=== PATIENT | female | born 1995 | race Caucasian/White ===

== ENCOUNTER 2020-07-05 12:20 | Outpatient (CLI) | payer OTHER, SELFPAY ==
[2020-07-05 13:35] LABS: Basophils Percent Auto 0.4 % (0.2-1.2); Eosinophils Percent Auto 0.5 % (0-4.4); Hematocrit 32.4 % (37.0-47.0); Immature Granulocyte Absolute 0.03 K/mm3 (0.00-0.031); Immature Granulocyte Percent A 0.4 % (0-0.5); Lymphocytes Absolute Auto 1.77 K/mm3 (0.9-3.2); Lymphocytes Percent Auto 23.2 % (18.3-44.2); Mean Corpuscular HGB Conc 30.9 g/dl (32-36); Mean Corpuscular Hemoglobin 22.3 pg (26-34); Mean Corpuscular Volume 72.2 fl (80-100); Mean Platelet Volume 10.1 fl (7.4-10.4); Monocytes Absolute Auto 0.4 K/mm3 (0.1-0.6); Monocytes Percent Auto 4.7 % (2.6-8.5); Neutrophils Absolute Auto 5.4 K/mm3 (1.3-6.7); Neutrophils Percent Auto 70.8 % (45.5-73.1); Platelet Count Result 332 k/mm3 (150-375); Red Blood Count 4.49 M/mm3 (4.2-5.4); Red Cell Distribution Width 16.3 % (11.5-14.5); White Blood Count 7.6 K/mm3 (4.5-10.0)
[2020-07-05 13:43] LABS: Hemoglobin A1C 5.3 % (<5.7)
[2020-07-05 14:27] LABS: HIV 1/2 Ab P24 Ag Result Negative (Negative)
[2020-07-05 14:53] LABS: Hepatitis B Surface Antigen Negative (Negative); Rubella IgG Antibody 49.8 IU/ML
[2020-07-05 15:04] LABS: Hepatitis C Virus Antibody Negative (Negative)
[2020-07-06 11:03] LABS: Rapid Plasma Reagin Non-Reactive (NonReactive)
== END 2020-07-05 12:21 | disposition home or self-care (01) ==
PROVIDERS: Visit Provider Obstetrics & Gynecology
DX: Z34.91 Encounter for supervision of normal pregnancy, unspecified, first trimester (principal); Z3A.00 Weeks of gestation of pregnancy not specified
CPT/HCPCS: 36415; 83036; 85025; 86592; 86703; 86762; 86803; 86850; 86900; 86901; 87340; G0432

== ENCOUNTER 2020-08-05 12:38 | Emergency (ER) | payer OTHER, SELFPAY ==
--- NOTE | 2020-08-05 12:41 | ECG_ITS ---
Measurements Intervals [place] Rate: 76 P: 6 AR: 158 QRS: -8 QRSD: 111 T: 7 QT: 378 QTc: 426 Interpretive Statements SINUS RHYTHM INCOMPLETE RIGHT BUNDLE BRANCH BLOCK BORDERLINE ECG Electronically Signed On 08-05-2020 13:53:23 ENTRY LEVEL CIVIL ENGINEER by Jason Peraza D.O.
[2020-08-05 12:53] VITALS: BP 137/71; PULSE 88; RESP 16; TEMP 36.2; O2SAT 100
[2020-08-05 13:13] LABS: Basophils Percent Auto 0.4 % (0.2-1.2); Eosinophils Absolute Auto 0.1 K/mm3 (0-0.3); Eosinophils Percent Auto 1.5 % (0-4.4); Hematocrit 28.4 % (37.0-47.0); Hemoglobin 8.9 g/dL (12.0-15.0); Immature Granulocyte Absolute 0.03 K/mm3 (0.00-0.031); Immature Granulocyte Percent A 0.4 % (0-0.5); Lymphocytes Absolute Auto 1.48 K/mm3 (0.9-3.2); Lymphocytes Percent Auto 20.3 % (18.3-44.2); Mean Corpuscular HGB Conc 31.3 g/dl (32-36); Mean Corpuscular Hemoglobin 23.1 pg (26-34); Mean Corpuscular Volume 73.8 fl (80-100); Mean Platelet Volume 10.4 fl (7.4-10.4); Monocytes Absolute Auto 0.3 K/mm3 (0.1-0.6); Monocytes Percent Auto 4.2 % (2.6-8.5); Neutrophils Absolute Auto 5.3 K/mm3 (1.3-6.7); Neutrophils Percent Auto 73.2 % (45.5-73.1); Platelet Count Result 294 k/mm3 (150-375); Red Blood Count 3.85 M/mm3 (4.2-5.4); White Blood Count 7.3 K/mm3 (4.5-10.0)
[2020-08-05 13:28] LABS: Anion Gap 7 mmol/L (8-16); Blood Urea Nitrogen 8 mg/dL (7-17); Calcium 8.8 mg/dL (8.4-10.2); Carbon Dioxide 24 mmol/L (22-30); Chloride 105 mmol/L (98-107); Estimated CRCL calculation 123 ml/min; Estimated Glomerular Filt Rate > 60; Glucose 135 mg/dL (65-105); Potassium 3.8 mmol/L (3.4-5.0); Sodium 136 mmol/L (137-145)
--- NOTE | 2020-08-05 13:51 | ED.DIZZY ---
HPI - Dizziness General Chief Complaint: Dizziness Stated Complaint: lightheaded/dizzy/ 16 weeks preg Time Seen by Provider: 08/05/20 13:27 History of Present Illness HPI Narrative: 25 yo female at 16 weeks gestation presents to the ED for dizziness. She reports that while at work today she became light headed. She has had similar symptoms recently. This only happens while standing. No LOC, SOB, CP, palpitations. She was nted to be anemic on labs done during triage. No significant change from previous labs and she denies any bleeding. Related Data Home Medications Medication Instructions Recorded Confirmed [id number] fum-folic ac-om3 pkg PO 08/05/20 08/05/20 [One Daily ] Allergies Allergy/AdvReac Type Severity Reaction Status Date / Time iodine Allergy Unknown Rash Verified 08/05/20 12:38 Review of Systems Review of Systems: All systems reviewed & are unremarkable except as noted in HPI and below Constitutional: Constitutional: Denies fever(s) Cardiovascular: Cardiovascular: Denies chest pain Respiratory: Respiratory: Denies dyspnea Gastrointestinal: Gastrointestinal: Denies diarrhea, Denies nausea and Denies vomiting Genitourinary: Genitourinary: Denies hematuria and Denies dysuria Neurologic: Reports dizziness, Denies syncope, Denies numbness and Denies weakness [facility] Social History Social History (Updated 08/05/20 @ 18:25 by Jatinder Rogers MD) Smoking status: Never smoker Exam Const: General: healthy appearing, no acute distress and alert Orientation/consciousness: patient oriented x3 HENMT: Head: normal to inspection Mouth: Yes moist mucous membranes Neck: Neck: normal visual inspection Resp: Effort & Inspection: normal respiratory effort Auscultation: clear to auscultation bilaterally, no rales, no rhonchi and no wheezes Cardio: Jugular venous distension: no JVD Rate: regular rate Rhythm: regular rhythm Heart sounds: no murmurs GI: Inspection: non-distended GI Palp: Yes Soft to palpation and No Tenderness to palpation present (GI) Skin: General skin exam: normal color Neuro: General: patient oriented x3, moves all extremities, no focal motor deficits and CN's II-XI intact bilaterally Cranial nerves: Yes Nystagmus not present Speech: normal speech Extrem: General: no edema Psych: Appearance: well kempt Affect: normal affect Course Vital Signs Vital signs: Vital Signs Temperature 36.2 C L 08/05/20 12:53 Pulse Rate 88 08/05/20 12:53 Respiratory Rate 16 08/05/20 12:53 Blood Pressure 137/71 08/05/20 12:53 Pulse Oximetry 100 08/05/20 12:53 Temperature 36.2 C L 08/05/20 12:53 Pulse Rate 74 08/05/20 15:15 Respiratory Rate 16 08/05/20 12:53 Blood Pressure 117/67 08/05/20 15:15 Pulse Oximetry 100 08/05/20 12:53 MDM - Dizziness MDM Narrative Medical decision making narrative: She is anemic. This appears to be chronic. I discussed the case with Dr. Barbour. He will see her in clinic and may start iron. Feeling better after fluids. Differential Diagnosis Differential diagnosis: Likely other (dehydration, anemia, vasovagal) Medical Records Attestation: I reviewed the patient's medical records. Lab Data Attestation: I reviewed the patient's lab results. Result diagrams: 08/05/20 12:57 08/05/20 12:57 Labs: Lab Results 08/05/20 08/05/20 Range/Units 12:57 12:57 WBC 7.3 (4.5-10.0) K/mm3 RBC 3.85 L (4.2-5.4) M/mm3 Hgb 8.9 L (12.0-15.0) g/dL Hct 28.4 L (37.0-47.0) % MCV 73.8 L (80-100) fl MCH 23.1 L (26-34) pg MCHC 31.3 L (32-36) g/dl RDW 17.0 H (11.5-14.5) % Plt Count 294 (150-375) k/mm3 MPV 10.4 (7.4-10.4) fl Immature Gran % (Auto) 0.4 (0-0.5) % Neut % (Auto) 73.2 H (45.5-73.1) % Lymph % (Auto) 20.3 (18.3-44.2) % [place] % (Auto) 4.2 (2.6-8.5) % Eos % (Auto) 1.5 (0-4.4) % Baso % (Auto) 0.4 (0.2-1.2) % Lymph # (Auto)
[2020-08-05 15:15] VITALS: BP 113/63; BP 117/67; PULSE 73; PULSE 74
[2020-08-05] MEDS: SODIUM CHLORIDE 0.9% IV 1,000 ML 999 ML (15:30)
--- NOTE | 2020-08-05 15:30 | PC.NURSE ---
Pt unable to stand during orthostatics, states is too dizzy. Assisted back to bed. Unable to describe dizziness but no nystagmus observed.
== END 2020-08-05 17:00 | disposition home or self-care (01) ==
PROVIDERS: Emergency Medicine; Emergency Provider Emergency Medicine
DX: O26.892 Other specified pregnancy related conditions, second trimester (principal); R55 Syncope and collapse; O99.012 Anemia complicating pregnancy, second trimester; D64.9 Anemia, unspecified; Z3A.16 16 weeks gestation of pregnancy
CPT/HCPCS: 36415; 80048; 85025; 93005; 96360; 96361; 99284; J7030

== ENCOUNTER 2020-11-30 10:22 | Outpatient (RCR) | payer OTHER, SELFPAY ==
--- NOTE | ~2020-11-30 | US_ITS ---
EXAMINATION: US OB BPP wo non-stress DATE: 11/30/2020 11:37 INDICATION: Variables office during third trimester TECHNIQUE: Real-time pelvic ultrasound was performed. The interpreting radiologist was not present fo r the study. COMPARISON: None. FINDINGS: There is a single living fetus in vertex presentation. The placenta is anterior. heart rate is 109 beats per minute (bpm). Biophysical profile performed by the technologist: breathing (30 sec sustained breathing in 30 minutes): 2 out of 2 movement (3 gross body movements in 30 minutes): 2 out of 2 tone (one episode of cnrvipf-dvgkwygdq-xsbglcu limb movement): 2 out of 2 Amniotic fluid pocket (2 cm): 2 out of 2 Total score: 8 out of 8 IMPRESSION: 1. Single living fetus in vertex presentation. 2. Biophysical profile 8 out of 8. Reviewed, dictated and finalized at location B.
[2020-11-30 11:07] VITALS: BP 122/69; PULSE 88
--- NOTE | 2020-11-30 11:42 | PC.NURSE ---
1140: BPP 01/09, spoke with Dr. Yeager. Orders to discharge home.
== END 2021-01-13 12:28 | disposition home or self-care (01) ==
LOC: ANHOBOP 10:22
PROVIDERS: Visit Provider Obstetrics & Gynecology
DX: O36.8330 Maternal care for abnormalities of the fetal heart rate or rhythm, third trimester, not applicable or unspecified (principal); Z3A.32 32 weeks gestation of pregnancy
CPT/HCPCS: 59025; 76819

== ENCOUNTER 2020-12-29 21:48 | Observation (INO) | payer OTHER, SELFPAY ==
[2020-12-29 23:16] VITALS: RESP 18; TEMP 36.7
[2020-12-29 23:49] VITALS: BMI 34.7
--- NOTE | 2020-12-29 23:49 | OBADM ---
This patient, Sohan Pennington, admitted to the OB room Labor/Delivery/Recovery 105 for observation. Patient/family oriented to hospital policies and general routines including ID bracelet, bed and alarms, visiting hours, pain management, procedures, bathroom and other care routines, personal items, smoking policy, room service/diet, and visiting hours. Patient/Family are encouraged to report perceived risks to care and to ask questions if they do not understand what they are told or what they should do.
--- NOTE | 2020-12-30 17:44 | PM.OBTRLD ---
OB - Triage/Final Diagnosis Visit Information Date of evaluation: 12/29/20 Reason for evaluation: threatened labor Comments/Additional reasons for admission: I have assessed the risk for this patient, Sohan Pennington, and determined that she would benefit from observation care. Evaluation Vital signs: Vital Signs - 24 hr 12/29/20 23:16 Temperature 36.7 C Respiratory Rate 18
== END 2020-12-29 23:59 | disposition home or self-care (01) ==
PROVIDERS: Admitting Provider Obstetrics & Gynecology; Visit Provider Obstetrics & Gynecology
DX: O47.9 False labor, unspecified (principal); Z3A.00 Weeks of gestation of pregnancy not specified
CPT/HCPCS: G0378; G0379

== ENCOUNTER 2021-01-12 12:36 | Outpatient (CLI) | payer OTHER, SELFPAY ==
[2021-01-12 13:48] LABS: Hematocrit 29.1 % (37.0-47.0); Hemoglobin 9.7 g/dL (12.0-15.0); Mean Corpuscular HGB Conc 33.3 g/dl (32-36); Mean Corpuscular Hemoglobin 27.8 pg (26-34); Mean Corpuscular Volume 83.4 fl (80-100); Mean Platelet Volume 9.9 fl (7.4-10.4); Platelet Count Result 253 k/mm3 (150-375); Red Blood Count 3.49 M/mm3 (4.2-5.4); Red Cell Distribution Width 23.2 % (11.5-14.5); White Blood Count 9.1 K/mm3 (4.5-10.0)
[2021-01-13 08:36] LABS: Rapid Plasma Reagin Non-Reactive (NonReactive)
== END 2021-01-12 12:37 | disposition home or self-care (01) ==
PROVIDERS: Visit Provider Obstetrics & Gynecology
DX: O34.219 Maternal care for unspecified type scar from previous cesarean delivery (principal); Z3A.00 Weeks of gestation of pregnancy not specified
CPT/HCPCS: 36415; 85027; 86592; 86850; 86900; 86901

== ENCOUNTER 2021-01-13 05:20 | Inpatient (IN) | payer OTHER, SELFPAY ==
--- NOTE | 2020-12-20 12:45 | PC.NURSE ---
VERIFIED WITH OR SCHEDULE AND PATIENT--C/S ON 01/13/21 AT 0730
[2021-01-13] VITALS (69 sets, daily range): BP systolic 64–115; BP diastolic 27–73; PULSE 59–100; RESP 14–18; TEMP 36.1–36.4; O2SAT 90–100; BMI 38.4
--- NOTE | 2021-01-13 05:26 | LDADM ---
This patient, Sohan Pennington, was admitted to Labor/Delivery/Recovery 119 on 01/13/21 at 05:20. Plans for labor, pain management and were discussed with patient. Patient/family oriented to hospital policies and general routines including ID bracelet, bed and alarms, visiting hours, pain management, procedures, bathroom and other care routines, personal items, smoking policy, room service/diet and guest tray routines, security routines, and visiting hours. Patient/Family are encouraged to report perceived risks to care and to ask questions if they do not understand what they are told or what they should do. See OBIX for further documentation.
[2021-01-13] MEDS: LACTATED RINGERS 1,000 ML 125 ML IV CONT (05:50)
--- NOTE | 2021-01-13 06:37 | WPDANESEPPF ---
Anes - Initial Pre Proc Eval Procedure: Operation Date: 01/13/21 07:30 Proposed Procedures p Repeat Section - Ramin Barbour MD Date/Time: 01/13/21 06:37 Surgeon: Ramin Barbour MD Pre Op Diagnosis: Patient Data Age: 25 Gender: F Height: 1.68 m Weight: 129.5 kg Last Vital Signs Pulse 94 01/13/21 06:01 BP 105/67 01/13/21 06:01 Allergies Allergy/AdvReac Type Severity Reaction Status Date / Time iodine Allergy Unknown Rash Verified 11/23/20 10:42 Home Medications Medication Instructions Recorded Confirmed Type One Daily 1 pkg PO DAILY 08/05/20 01/13/21 History Patient hx anesthesia problems: none Family hx anesthesia problems: none [facility] Past Medical History Medical History (Updated 01/13/21 @ 06:37 by Mark Frank MD) Morbid obesity Surgical History Surgical History (Updated 01/13/21 @ 06:37 by Mark Frank MD) History of section Family History Family History Other No pertinent family history Social History Social History Years smoked: 8 Smoking status: Former smoker Tobacco type: cigarettes Substance use: former Spiritual care concerns: No Anes - Eval Final PreProcedure Day of Procedure 01/13/21 06:37 Patient weight: morbidly obese Heart: regular rate and rhythm Lungs: clear to auscultation Airway: Mallampati scale class II Neurological: alert and oriented Last oral intake: >/= 8 hours ASA classification: III Emergent: no Anesthetic plan: proceed Anesthesia type and monitoring: regional spinal and standard monitoring Informed Consent: The patient's anesthetic plan and its attendant risks and benefits were discussed with the patient/family/POA. Questions were solicited and answers provided to the satisfaction of the patient/family/POA.
[2021-01-13] MEDS: LACTATED RINGERS 250 ML 999 ML IVPB (07:09)
--- NOTE | 2021-01-13 07:20 | WPDHPUPDATE1 ---
History and Physical Update Update Date/Time: 01/13/21 07:20 History and Physical has been reviewed, including an updated exam of the patient. There are NO changes in the patient's condition. Risks, benefits, and alternatives have been discussed and questions answered. Patient agrees to proceed with procedure.
--- NOTE | 2021-01-13 07:20 | PM.IMHP ---
H&P: HPI History of Present Illness Date/Time: 01/13/21 07:20 this patient is a 25-year-old multiparous at term who has a previous delivery. We have agreed to repeat delivery. Patient understands there is risk. She understands that injuries can occur that result in hospitalization, more surgery, and severe illness. She denies any chest pain or shortness of breath. She denies any nausea, vomiting, fever, chills. She denies any contractions, loss of fluid, vaginal bleeding. Chief Complaint: Term Review of Systems Constitutional: Constitutional: Reports no additional constitutional complaints, Denies fatigue, Denies headache(s), Denies lethargy and Denies weakness Eyes: Eyes: Reports no additional eye complaints, Denies blurry vision and Denies photophobia ENT: Reports as per HPI, Denies headache(s) and Denies neck pain Cardiovascular: Cardiovascular: Denies chest pain, Denies diaphoresis, Denies leg edema, Denies palpitations and Denies dyspnea Respiratory: Respiratory: Denies hemoptysis, Denies dyspnea and Denies wheezing Gastrointestinal: Gastrointestinal: Denies abdominal pain, Denies melena, Denies bloating, Denies hematochezia, Denies nausea and Denies vomiting Genitourinary: Genitourinary: Reports no additional female genitourinary complaints Musculoskeletal: Musculoskeletal: Denies joint swelling, Denies neck pain, Denies numbness and Denies stiffness Neurologic: Denies Abnormal speech present, Denies confusion, Denies headache(s), Denies numbness and Denies weakness Psychiatric: Psychiatric: Denies anxiety, Denies confusion, Denies depression, Denies homicidal ideation and Denies suicidal ideation Endocrine: Endocrine: Denies fatigue and Denies palpitations Allergic/Immunologic: Allergic/Immunologic: Denies wheezing PMF Past Medical History Medical History (Updated 01/13/21 @ 07:22 by Ramin Barbour MD) Morbid obesity Surgical History Surgical History (Updated 01/13/21 @ 07:22 by Ramin Barbour MD) History of section Family History Family History Other No pertinent family history Social History Social History Years smoked: 8 Smoking status: Former smoker Tobacco type: cigarettes Substance use: former Spiritual care concerns: No Meds Home Medications and Allergies Home Medications Medication Instructions Recorded Confirmed Type One Daily 1 pkg PO DAILY 08/05/20 01/13/21 History Allergies Allergy/AdvReac Type Severity Reaction Status Date / Time iodine Allergy Unknown Rash Verified 11/23/20 10:42 Vital Signs Vital Signs - 24 hr 01/13/21 05:54 01/13/21 06:01 Pulse Rate 100 94 Blood Pressure 104/66 105/67 Exam Const: General: healthy appearing, comfortable and no acute distress; No confusion Orientation/consciousness: No confusion Eyes: Direct Ophthalmoscopy: No photophobia Resp: Auscultation: clear to auscultation bilaterally, no rales, no rhonchi and no wheezes Cardio: Rate: regular rate Heart sounds: no click, no murmurs and no rubs GI: Inspection: non-distended GI Palp: No abdominal tenderness Auscultation: normal bowel sounds Neuro: General: No confusion Speech: No Abnormal speech present Extrem: General: normal to inspection, no pedal edema and no calf tenderness Assessment and Plan Assessment and plan (1) Previous section: Code(s): Z98.891 - History of uterine scar from previous surgery Status: Acute (2) Term : Code(s): Z34.90 - Encounter for supervision of normal , unspecified, unspecified trimester Status: Acute Assessment and Plan: This patient is a 25-year-old multiparas female at term with previous delivery. We agreed to perform repeat delivery. She understands the risks, benefits, and alternatives.
--- NOTE | 2021-01-13 08:49 | W.PM.PROC2 ---
Procedure Note - Detailed Date of Procedure 01/13/21 Pre-op Diagnosis Previous Post-op Diagnosis same Procedure Performed Low-transverse section Surgeon Ramin Barbour MD Anesthesia spinal Indications previous x2 Findings Normal gestational maternal anatomy, average size infant, normal Apgars. Description of Procedure The patient was taken the operating room. She was prepped and draped in dorsal supine position with a leftward tilt. This was done after spinal anesthetic was applied. A low-transverse skin incision was made and carried down till of the fascia with the knife. The fascial incision was made with the knife. The fascial incision was extended laterally with Wall scissors. The fascia was tented upward superiorly and inferiorly the rectus muscles were dissected off bluntly. The rectus muscles were the midline. The preperitoneal fat and peritoneum were dissected open bluntly at the superior aspect of the rectus muscles. The peritoneal incision was extended superior and inferior with good position of bladder. The uterine incision was made with a scalpel down to the level of the amniotic cavity. The amniotic cavity was entered bluntly. The was delivered. The cord was clamped and cut and the infant was handed off to waiting pediatric staff. Cord bloods were obtained. The placenta was removed manually. The uterus was exteriorized. The uterus was cleared of all clots, debris and membranes. The uterus was closed in 0 Vicryl running lock fashion. An imbricating over a was placed along the incision line as well. The uterus was returned to the abdomen. The gutters were cleared of all clots and debris. The fascia was closed with 0 Vicryl running fashion. The subcutaneous tissue was irrigated pinpoint bleeders were cauterized. The subcutaneous fat was closed with interrupted 3-0 Vicryl. The skin was closed with subcuticular absorbable almaz. The skin incision line was covered with glue. The patient tolerated the procedure well. She has taken recovery room in stable condition. Sponge lap and needle counts were correct x2. Estimated Blood Loss 330 Complications No immediate complications Condition stable Disposition PACU
[2021-01-13] MEDS: KETOROLAC 30 MG/ML VIAL (*BKC) (09:35)
[2021-01-13] MEDS: OXYTOCIN 30 UNITS/NS 500 ML 30 UNITS/500 ML BAG 125 UNITS IV CONT (09:57)
[2021-01-13] MEDS: miSOPROStol 200 MCG TABLET 1000 MCG RECTAL (10:25)
[2021-01-13] MEDS: fentaNYL CITRATE INJ (*CRX) 100 MCG/2 ML VIAL 25 MCG IV PUSH (10:48)
--- NOTE | 2021-01-13 11:35 | OBPPTRN ---
Patient transferred to post room # 286 via stretcher. Support person present. Oriented to unit, room, information board, rooming in, admission packet and security measures. Patient verbalizes understanding.
[2021-01-13] MEDS: DEXTROSE 5%/0.45% SOD CHL 1,000 ML 125 ML IV CONT (13:27)
[2021-01-13] MEDS: HYDROcodone/acetaminophen (*CRX) 5-325 MG TABLET 1 TAB PO ×2 (15:16→20:04)
[2021-01-13] MEDS: MULTIVIT/MIN/PREN/FOL AC/IRON TABLET 1 TAB PO (15:17)
[2021-01-13] MEDS: DOCUSATE SODIUM 100 MG CAPSULE PO ×2 (15:17→23:14)
[2021-01-13] MEDS: IBUPROFEN 600 MG TABLET PO ×2 (15:17→23:13)
[2021-01-13] MEDS: POLYSACCHARIDE IRON COMPLEX 150 MG CAPSULE PO (18:42)
[2021-01-13] MEDS: KCL 20 MEQ/D5/0.45% SOD CHL 1,000 ML 125 ML IV CONT (20:05)
[2021-01-13] MEDS: HYDROcodone/acetaminophen (*CRX) 10-325 MG TABLET 1 TAB PO (23:13)
[2021-01-13] MEDS: SIMETHICONE 80 MG TAB.CHEW PO (23:14)
[2021-01-14] MEDS: HYDROcodone/acetaminophen (*CRX) 10-325 MG TABLET 1 TAB PO ×6 (02:47→22:30)
[2021-01-14 04:45] VITALS: BP 106/55; PULSE 70; RESP 16; TEMP 36.2; O2SAT 97
[2021-01-14 05:18] LABS: Basophils Percent Auto 0.2 % (0.2-1.2); Eosinophils Absolute Auto 0.2 K/mm3 (0-0.3); Eosinophils Percent Auto 1.7 % (0-4.4); Hematocrit 23.4 % (37.0-47.0); Hemoglobin 7.3 g/dL (12.0-15.0); Immature Granulocyte Absolute 0.13 K/mm3 (0.00-0.031); Immature Granulocyte Percent A 1.3 % (0-0.5); Lymphocytes Absolute Auto 1.76 K/mm3 (0.9-3.2); Lymphocytes Percent Auto 17.2 % (18.3-44.2); Mean Corpuscular HGB Conc 31.2 g/dl (32-36); Mean Corpuscular Hemoglobin 27.2 pg (26-34); Mean Corpuscular Volume 87.3 fl (80-100); Mean Platelet Volume 10.3 fl (7.4-10.4); Monocytes Absolute Auto 0.6 K/mm3 (0.1-0.6); Monocytes Percent Auto 6.1 % (2.6-8.5); Neutrophils Absolute Auto 7.5 K/mm3 (1.3-6.7); Neutrophils Percent Auto 73.5 % (45.5-73.1); Platelet Count Result 190 k/mm3 (150-375); Red Blood Count 2.68 M/mm3 (4.2-5.4); Red Cell Distribution Width 22.6 % (11.5-14.5); White Blood Count 10.2 K/mm3 (4.5-10.0)
[2021-01-14 06:10] VITALS: BP 98/58; PULSE 69; RESP 20; TEMP 36.7
[2021-01-14] MEDS: IBUPROFEN 600 MG TABLET PO ×3 (07:14→19:13)
[2021-01-14] MEDS: POLYSACCHARIDE IRON COMPLEX 150 MG CAPSULE PO ×2 (07:14→17:08)
[2021-01-14] MEDS: MULTIVIT/MIN/PREN/FOL AC/IRON TABLET 1 TAB PO (07:14)
[2021-01-14] MEDS: DOCUSATE SODIUM 100 MG CAPSULE PO ×2 (07:14→17:08)
[2021-01-14] MEDS: SIMETHICONE 80 MG TAB.CHEW PO (13:39)
--- NOTE | 2021-01-14 15:18 | WPDANLDPN2 ---
Anes-Prog Note L&D Date/Time: 01/14/21 15:18 Comfortable throughout: section Neuraxial method: epidural Epidural/Spinal procedure site: erythematous Neuro status: Neuro function grossly intact. Cardiovascular status: normal Respiratory status: normal Airway patency: baseline Mental status: baseline Post-Op hydration status: normal Vital Signs: Last Vital Signs Temp 36.7 C 01/14/21 06:10 Pulse 69 01/14/21 06:10 Resp 20 01/14/21 06:10 BP 98/58 L 01/14/21 06:10 Pulse Ox 97 01/14/21 04:45 Pain score (VAS): 06/13 I/O: Intake & Output 01/13/21 01/14/21 01/14/21 23:59 07:59 15:59 Intake Total 500 1670 Output Total 700 1775 Balance -200 -105 Post-procedural complaints: none Patient feedback: Patient satisfied with anesthetic care.
--- NOTE | 2021-01-14 15:18 | WPDANLDNPN2 ---
Anes-Prog Note L&D-Neuraxial Date/Time: 01/14/21 15:18 Neuraxial medications: epidural PF morphine Opiod-related complaints: none Patient feedback: Patient satisfied with post-operative pain management.
[2021-01-14 20:11] VITALS: BP 107/66; PULSE 80; RESP 18; TEMP 36; O2SAT 100
[2021-01-15] MEDS: HYDROcodone/acetaminophen (*CRX) 10-325 MG TABLET 1 TAB PO ×4 (02:21→14:59)
[2021-01-15] MEDS: IBUPROFEN 600 MG TABLET PO ×2 (02:22→11:32)
[2021-01-15] MEDS: POLYSACCHARIDE IRON COMPLEX 150 MG CAPSULE PO (07:13)
[2021-01-15] MEDS: DOCUSATE SODIUM 100 MG CAPSULE PO (07:13)
[2021-01-15] MEDS: SIMETHICONE 80 MG TAB.CHEW PO ×2 (07:15→11:32)
--- NOTE | 2021-01-15 09:05 | PM.OBPNVD ---
OB - PN: Subj Subjective Date/time seen: 01/15/21 09:05 Patient comments: incisional pain [place] baby status: doing well Narrative: Would like DC home today. OB - PN: Obj Data Labs CBC & Chem 7: 01/14/21 04:37 OB - PN A/P Plan day: 2 Plan: routine care and discharge home Comments: Anemic- Hgb 7, no sx, home on iron. Time Spent With Patient Time: Total time spent is greater than 50% in coordination of care (as documented) at patient's floor/unit and/or counseling patient: Exam Narrative: NAD abdomen soft, appropriately tender, incision CDI Extremities nontender with 1+ edema
--- NOTE | 2021-01-15 09:14 | PM.DS ---
DS: Admitting Diagnosis Admitting Diagnosis prior CS DS: Discharge Diagnosis Discharge Diagnosis (1) Term : Code(s): Z34.90 - Encounter for supervision of normal , unspecified, unspecified trimester Status: Acute (2) Previous section: Code(s): Z98.891 - History of uterine scar from previous surgery Status: Acute (3) Anemia complicating , unspecified trimester: Code(s): O99.019 - Anemia complicating , unspecified trimester Status: Acute DS: Summary Hospital Course Reason for hospitalization: repeat CS Hospital Course: Pt was admitted for repeat CS. Her delivery and course were uncomplicated except by anemia. Status at Discharge Functional status at discharge: independent ambulation Time Spent with Patient Time attestation: Total time spent providing and/or coordinating discharge services: Time spent: Less than 30 minutes Exam Narrative: NAD abdomen soft, appropriately tender, incision CDI Discharge Plan Discharge Attending physician on discharge: Yuliya Yeager Discharging Clinician: Yuliya Yeager Anticipated Discharge Date/Time: 01/15/21 12:00 Patient Disposition: Home, Self-Care Activity: pelvic rest Diet: as tolerated Patient Instructions: Antibiotic Form Stand Alone Forms: General Discharge Information Follow-up/Referrals: Ramin Barbour MD [Physician] - 1 Week Discharge Medications: New hydrocodone-acetaminophen 5-325 mg Tablet 1 tablet PO Q3H PRN (Reason: Moderate Pain (4-6)) Qty: 30 RF: 0 polysaccharide iron complex 150 mg iron Capsule 150 mg PO BIDWM Qty: 60 RF: 1 ibuprofen 600 mg Tablet 600 mg PO Q6H PRN (Reason: Cramping) Qty: 60 RF: 1 docusate sodium 100 mg Capsule 100 mg PO Q12HR PRN (Reason: constipation) Qty: 60 RF: 1 Continued One Daily 28 mg iron- 800 mcg Combo Pack 1 pkg PO DAILY RF: 0 Date of admission: 01/13/21 05:20 Primary Care Provider: PHYSICIAN,TOBACCO PACKING MACHINE OPERATOR Admitting Provider: Ramin Barbour Attending physician on admission: Ramin Barbour Condition: Stable
[2021-01-15] MEDS: MULTIVIT/MIN/PREN/FOL AC/IRON TABLET 1 TAB PO (11:32)
== END 2021-01-15 15:02 | disposition home or self-care (01) | DRG 540 ==
LOC: ANHOB2 01-15 12:59 → ANHLDR 01-17 11:37 → ANHOB2 01-17 11:37
PROVIDERS: Admitting Provider Obstetrics & Gynecology; Visit Provider Obstetrics & Gynecology
PROC: 10D00Z1 Extraction of Products of Conception, Low, Open Approach (ICD-10-PCS; CPT 59514; principal; 2021-01-13 07:30)
DX: O34.211 Maternal care for low transverse scar from previous cesarean delivery (principal); Z37.0 Single live birth; Z3A.39 39 weeks gestation of pregnancy; O99.214 Obesity complicating childbirth; E66.01 Morbid (severe) obesity due to excess calories; O90.81 Anemia of the puerperium; D64.9 Anemia, unspecified
CPT/HCPCS: 36415; 85025; A9270; J0131; J1200; J1885; J2250; J2274; J2370; J2405; J2590; J3010; J3480; J7120

== ENCOUNTER 2023-01-29 15:01 | Outpatient (CLI) | payer OTHER, SELFPAY ==
[2023-01-29 18:55] LABS: Basophils Percent Auto 0.4 % (0.2-1.2); Eosinophils Absolute Auto 0.1 K/mm3 (0-0.3); Eosinophils Percent Auto 0.6 % (0-4.4); Hematocrit 35.1 % (37.0-47.0); Hemoglobin 10.5 g/dL (12.0-15.0); Immature Granulocyte Absolute 0.01 K/mm3 (0.00-0.031); Immature Granulocyte Percent A 0.1 % (0-0.5); Lymphocytes Absolute Auto 2.26 K/mm3 (0.9-3.2); Mean Corpuscular HGB Conc 29.9 g/dl (32-36); Mean Platelet Volume 11.3 fl (7.4-10.4); Monocytes Absolute Auto 0.5 K/mm3 (0.1-0.6); Monocytes Percent Auto 6.6 % (2.6-8.5); Neutrophils Absolute Auto 5.2 K/mm3 (1.3-6.7); Neutrophils Percent Auto 64.3 % (45.5-73.1); Platelet Count Result 346 k/mm3 (150-375); Red Blood Count 4.56 M/mm3 (4.2-5.4); Red Cell Distribution Width 17.4 % (11.5-14.5); White Blood Count 8.1 K/mm3 (4.5-10.0)
[2023-01-29 19:21] LABS: Alanine Aminotransferase 23 U/L (6-35); Albumin Level 4.7 g/dL (3.5-5.1); Alkaline Phosphatase 64 U/L (38-126); Anion Gap 5 mmol/L (8-16); Aspartate Amino Transferase 37 U/L (14-36); Bilirubin,Total 0.3 mg/dL (0.2-1.3); Blood Urea Nitrogen 13 mg/dL (7-17); Calcium 9.4 mg/dL (8.4-10.2); Carbon Dioxide 31 mmol/L (22-30); Chloride 103 mmol/L (98-107); Estimated Glomerular Filt Rate > 60; Glucose 88 mg/dL (65-110); Potassium 4.1 mmol/L (3.4-5.0); Sodium 139 mmol/L (137-145)
[2023-01-29 19:34] LABS: Beta HCG Quantitative < 2.39 mIU/ML
[2023-01-29 19:44] LABS: Iron 32 ug/dL (37-170)
[2023-01-29 19:55] LABS: Hypochromasia 1+ (NORMAL); Platelet Estimate Adequate (Adequate); Schistocytes None Seen (NORMAL)
[2023-01-29 19:56] LABS: Anisocytosis 2+ (NORMAL)
[2023-01-29 19:59] LABS: HIV 1/2 Ab P24 Ag Result Negative (Negative)
[2023-01-29 20:05] LABS: Hemoglobin A1C 5.2 % (<5.7)
[2023-01-29 20:07] LABS: Percent Iron Saturation 7 % (20-50)
[2023-01-29 20:21] LABS: Ferritin 8.67 ng/mL (6.24-137)
[2023-01-29 20:24] LABS: Folic Acid 7.3 ng/mL (2.76->20)
[2023-01-30 06:17] LABS: Trichomonas Vag PCR NOT DETECTED (NOT DETECTE)
[2023-01-30 08:13] LABS: Chlamydia trachomatis NOT DETECTED (NOT DETECTE); Neisseria gonorrhoeae PCR NOT DETECTED (NOT DETECTE)
[2023-01-30 09:58] LABS: Rapid Plasma Reagin Non-Reactive (NonReactive)
== END 2023-01-29 15:02 | disposition home or self-care (01) ==
LOC: ANHGOSHLAB 15:01
PROVIDERS: PCP Emergency Medicine; Visit Provider Emergency Medicine
DX: Z11.3 Encounter for screening for infections with a predominantly sexual mode of transmission (principal); D64.9 Anemia, unspecified; N92.6 Irregular menstruation, unspecified; Z83.3 Family history of diabetes mellitus
CPT/HCPCS: 36415; 80053; 82607; 82728; 82746; 83036; 83540; 83550; 84443; 84702; 85025; 86592; 86703; 87491; 87591; 87661; G0432

== ENCOUNTER 2023-02-23 08:46 | Emergency (ER) | payer OTHER, SELFPAY ==
[2023-02-23 09:02] VITALS: BP 145/90; PULSE 75; RESP 16; TEMP 36.1; O2SAT 100
--- NOTE | 2023-02-23 09:16 | ED.DENTAL ---
HPI - Dental/Oral General Chief complaint: Dental/Oral Stated complaint: tooth pain left side Source: patient Mode of arrival: ambulatory History of Present Illness HPI Narrative: 27-year-old female presented for complaint of left lower dental pain for about 1 week. Endorses she broken tooth to the site for quite time. Pain is radiating to throat and ear. Unable to sleep last night due to pain. She has dentist appt 04/13/2023. Taking Tylenol for pain, rinsed mouth with hydrogen peroxide. She denies associated nausea vomiting, fevers or chills. MD Complaint: tooth pain Related Data Allergies Allergy/AdvReac Type Severity Reaction Status Date / Time iodine Allergy Unknown Rash Verified 02/23/23 09:10 Review of Systems Review of Systems: CONSTITUTIONAL: Denies body aches, fever, chills ENT: Denies rhinorrhea, congestion, sore throat, or otalgia. Reports dental pain CARDIOVASCULAR: Denies chest pain, palpitations RESPIRATORY: Denies cough or dyspnea. SKIN: Denies rash, itching, or wounds. MUSCULOSKELETAL: Denies myalgia. NEUROLOGIC: Denies headache, numbness, tingling, or weakness. [facility], [facility] Past Medical History Medical History Morbid obesity Surgical History Surgical History History of section Family History Family History Other No pertinent family history Social History Social History Smoking packs per day: 1 Smoking cigarettes per day: 20.0 Years smoked: 8 Smoking pack-years: 8.00 Smoking status: Former smoker Tobacco type: cigarettes Alcohol intake: current Substance use: unknown Lack of Transportation: No Lack of Food: Never True Current Housing: I Have Housing Concerned About Future Housing: No Difficulty Paying Gas/Electric Bills: No Difficulty Paying for Meds: No Currently Unemployed: No Education: High School Diploma/GED Difficulty w/ Childcare or Family Care: No Spiritual care concerns: No Comments At time of signature, I have reviewed and agree with nursing past medical, surgical, social and family history unless otherwise noted. Please see nursing chart for further information. There is no relevant family history pertinent to the presenting complaint Exam Narrative: GENERAL: Appears in pain; no acute distress. HEAD: Normocephalic, atraumatic. EYES: EOMI. No redness or drainage. Conjunctivae normal. ENT: Dental pain location of #19, 20 broken and brown in color; mild surrounding gum swelling and erythema. No drainage. Mucous membranes pink and moist. TMs normal bilaterally. Throat normal. Uvula midline. NECK: Normal AROM. No lymphadenopathy. No induration below mandible. CHEST: No respiratory distress. Clear to auscultation. HEART: Regular rate and rhythm. No murmur appreciated. SKIN: Warm, dry, no rash. Normal skin turgor. NEURO: No focal deficits. Alert and oriented x3. Gait steady. Course Course Emergency Course: Patient is aware of diagnosis, understands and agrees to treatment plan. Anticipatory guidance given. Patient agrees to follow-up as directed and is aware of reasons to seek care at the emergency department. Portions of this record may have been created with voice recognition software Level of Care: Express Care Visit Vital Signs Vital signs: Vital Signs Temperature 97 F L 02/23/23 09:02 Pulse Rate 75 02/23/23 09:02 Respiratory Rate 16 02/23/23 09:02 Blood Pressure 145/90 H 02/23/23 09:02 Pulse Oximetry 100 02/23/23 09:02 Oxygen Delivery Room Air 02/23/23 09:02 Temperature 97 F L 02/23/23 09:02 Pulse Rate 75 02/23/23 09:02 Respiratory Rate 16 02/23/23 09:02 Blood Pressure 145/90 H 02/23/23 09:02 Pulse Oximetry 100 02/23/23 09:02 Oxygen Delivery Room Air
== END 2023-02-23 09:28 | disposition home or self-care (01) ==
PROVIDERS: Emergency Provider Nurse Practitioner Family; PCP Emergency Medicine
DX: K04.7 Periapical abscess without sinus (principal); Z87.891 Personal history of nicotine dependence; E66.01 Morbid (severe) obesity due to excess calories; Z68.34 Body mass index [BMI] 34.0-34.9, adult
CPT/HCPCS: 99213; G0463

== ENCOUNTER 2023-10-04 09:05 | Outpatient (CLI) | payer OTHER, SELFPAY ==
--- NOTE | ~2023-10-04 | XR_ITS ---
XR foot LT min 3V 10/04/2023 09:25 Indication: Left foot pain Procedure: 4 views left foot Comparison: No prior studies for comparison. Findings: No fracture, subluxation or dislocation. There are small degenerative calcaneal enthesophyt es. Lisfranc joint intact. No fracture or traumatic malalignment. No soft tissue abnormality. No fore ign bodies. Impression: 1: No significant bone or joint abnormality. Reviewed, dictated and finalized at location B. Impression: 1: No significant bone or joint abnormality.
== END 2023-10-04 09:06 | disposition home or self-care (01) ==
LOC: ANHIMG 09:07
PROVIDERS: PCP Emergency Medicine; Visit Provider Emergency Medicine
DX: M21.612 Bunion of left foot (principal)
CPT/HCPCS: 73630